=== PATIENT | female | born 1985 | race Caucasian/White ===

== ENCOUNTER 2017-06-16 10:51 | Emergency (ER) | payer OTHER ==
[~2017-06-16] VITALS: Ht 160 cm; Wt 77.2 kg
[~2017-06-16 10:51] MED LIST: CIPRO500 MG PO; MOTRIN800 MG PO; TYLENOL WITH C1 EACH PO
[2017-06-16 11:34] LABS: HEMATOCRIT 38.9 % (36.0-46.0); MCH 29.7 PG (29.0-34.0); MCHC 33.4 G/DL (30.0-36.0); PLATELET COUNT 291 K/uL (156-360); RBC DIS.WIDTH-CV 12.5 % (11.8-14.6); RBC DIS.WIDTH-SD 41.1 % (39-53); RED BLOOD COUNT 4.37 M/uL (3.80-5.20); WHITE BLOOD COUNT 9.4 K/uL (4.1-10.2)
[2017-06-16 11:47] LABS: CHLORIDE 105 mEq/L (99-109); POTASSIUM 4.3 mEq/L (3.7-5.4); SODIUM 138 mEq/L (136-147)
[2017-06-16 11:48] LABS: GLUCOSE 89 mg/dL (70-99)
[2017-06-16 11:52] LABS: CREATININE 0.6 mg/dL (0.6-1.3); GFR ESTIMATE (CALCULATED) > 59 mL/min/
[2017-06-16 11:53] LABS: UREA NITROGEN (BUN) 12 mg/dL (9-23)
[2017-06-16 12:01] LABS: QUANTITATIVE HCG < 4.0 MIU/ML
[2017-06-16] MEDS ORDERED: FIORICET 50-301 EAC1 PO (14:50)
[2017-06-16 14:58] VITALS: BP 115/71
== END 2017-06-16 15:00 | disposition home or self-care (01) ==
LOC: EME 10:51
DX: R51 Headache (principal)
CPT/HCPCS: 70450; 80048; 84702; 85027; 99281; 99284; J1885

== ENCOUNTER 2017-08-03 19:49 | Emergency (ER) | payer OTHER ==
[~2017-08-03] VITALS: Ht 160 cm; Wt 82.8 kg
[~2017-08-03 19:49] MED LIST changes: +FIORICET 50-301 EAC1 PO
[2017-08-03] MEDS ORDERED: MEDROL DOSEPAK4 MG PO (20:35)
[2017-08-03] MEDS ORDERED: VALIUM5 MG PO (20:35)
[2017-08-03 20:49] VITALS: BP 152/85
== END 2017-08-03 21:04 | disposition home or self-care (01) ==
LOC: EME 19:49
DX: M54.12 Radiculopathy, cervical region (principal); M62.838 Other muscle spasm; G43.909 Migraine, unspecified, not intractable, without status migrainosus; Z88.1 Allergy status to other antibiotic agents
CPT/HCPCS: 99281; 99284; J1885; J2765